=== PATIENT | female | born 1995 | race Caucasian/White ===

== ENCOUNTER 2020-09-11 09:47 | Outpatient (REF) | payer OTHER, SELFPAY ==
--- NOTE | ~2020-09-11 | XR_ITS ---
EXAMINATION: XR TIBIA AND FIBULA, RIGHT CLINICAL INFORMATION: Creatinine spasm COMPARISON: None TECHNIQUE: AP and lateral views of the right tibia and fibula were obtained. FINDINGS: The bones and soft tissues are normal. No fracture. No osseous lesions. XR/XR tibia fibula RT 2V IMPRESSION: Normal right tibia and fibula.
[2020-09-11 11:46] LABS: Alanine Aminotransferase 17 U/L (0-31); Albumin Level 4.9 g/dL (3.5-5.0); Alkaline Phosphatase 54 U/L (39-117); Anion Gap 16 (12-20); Aspartate Amino Transferase 22 U/L (5-31); Bilirubin Total 0.6 mg/dL (0.0-1.0); Blood Urea Nitrogen 9 mg/dL (9-16); Calcium 9.7 mg/dL (8.4-10.2); Carbon Dioxide 26 mmol/L (22-29); Chloride 103 mmol/L (96-108); Estimated Glomerular Filt Rate > 60; Glucose Random 77 mg/dL (60-115); Magnesium 2.2 mg/dL (1.6-2.6); Potassium 4.5 mmol/L (3.3-5.1); Sodium 140 mmol/L (135-145); Total Protein 7.9 g/dL (6.5-8.0)
[2020-09-11 12:09] LABS: Erythrocyte Sedimentation Rate 4 MM/HR (0-20)
[2020-09-12 13:37] LABS: CRP High Sensitivity 1.6 mg/L
== END 2020-09-11 09:48 | disposition home or self-care (01) ==
LOC: HO.WFDLDS 09:47
PROVIDERS: PCP Family Medicine; Visit Provider Family Medicine
DX: R25.2 Cramp and spasm (principal)
CPT/HCPCS: 36415; 73590; 80053; 83735; 85652; 86141

== ENCOUNTER 2020-09-12 15:55 | Outpatient (REF) | payer OTHER, SELFPAY ==
[2020-09-12 17:44] LABS: D Dimer < 200 NG/ML
== END 2020-09-12 15:56 | disposition home or self-care (01) ==
LOC: HO.LAB 15:55
PROVIDERS: Visit Provider Family Medicine
DX: M79.669 Pain in unspecified lower leg (principal); R25.2 Cramp and spasm
CPT/HCPCS: 36415; 85379

== ENCOUNTER 2020-11-03 13:47 | Outpatient (REF) | payer OTHER, SELFPAY ==
--- NOTE | ~2020-11-03 | US_ITS ---
EXAMINATION: US DIAGNOSTIC ULTRASOUND BREAST, RIGHT US DIAGNOSTIC ULTRASOUND BREAST, LEFT CLINICAL INFORMATION: 25-year-old with chronic cyclical palpable fullness upper outer quadrants. No known family history breast cancer. No prior breast imaging. COMPARISON: None. TECHNIQUE: Ultrasound of each breast is targeted to the areas of clinical concern. Grayscale imaging and color Doppler are performed without and with harmonics. Left breast is targeted to the 1:00 through 3:00 position. Right breast is targeted to the 6:00 to 7:00 and 10:00 position. Patient is able to point to the areas of concern at time of imaging. FINDINGS: Right: There is no focal suspicious finding. There is no cystic or solid mass, architectural abnormality, duct ectasia, or edema in the soft tissue planes. Left: There is no focal suspicious finding. There is no cystic or solid mass, architectural abnormality, duct ectasia, or edema in the soft tissue planes. Results are discussed with the patient at time of visit. US/US breast RT limited IMPRESSION: Normal study. ASSESSMENT: BI-RADS 1: Negative RECOMMENDATION: 1. Patient should be managed based on the clinical impression. If clinically indicated, further evaluation may be considered with surgical consult. Decision to proceed with biopsy should be based on clinical grounds and degree of clinical concern. 2. Otherwise, routine annual screening mammography, beginning age 40, or earlier as clinical risk factors warrant..
--- NOTE | ~2020-11-03 | US_ITS ---
EXAMINATION: US DIAGNOSTIC ULTRASOUND BREAST, RIGHT US DIAGNOSTIC ULTRASOUND BREAST, LEFT CLINICAL INFORMATION: 25-year-old with chronic cyclical palpable fullness upper outer quadrants. No known family history breast cancer. No prior breast imaging. COMPARISON: None. TECHNIQUE: Ultrasound of each breast is targeted to the areas of clinical concern. Grayscale imaging and color Doppler are performed without and with harmonics. Left breast is targeted to the 1:00 through 3:00 position. Right breast is targeted to the 6:00 to 7:00 and 10:00 position. Patient is able to point to the areas of concern at time of imaging. FINDINGS: Right: There is no focal suspicious finding. There is no cystic or solid mass, architectural abnormality, duct ectasia, or edema in the soft tissue planes. Left: There is no focal suspicious finding. There is no cystic or solid mass, architectural abnormality, duct ectasia, or edema in the soft tissue planes. Results are discussed with the patient at time of visit. US/US breast LT limited IMPRESSION: Normal study. ASSESSMENT: BI-RADS 1: Negative RECOMMENDATION: 1. Patient should be managed based on the clinical impression. If clinically indicated, further evaluation may be considered with surgical consult. Decision to proceed with biopsy should be based on clinical grounds and degree of clinical concern. 2. Otherwise, routine annual screening mammography, beginning age 40, or earlier as clinical risk factors warrant..
== END 2020-11-03 13:48 | disposition home or self-care (01) ==
LOC: HO.MAMMO 13:47
PROVIDERS: Visit Provider Family Medicine
DX: N63.11 Unspecified lump in the right breast, upper outer quadrant (principal); N63.21 Unspecified lump in the left breast, upper outer quadrant
CPT/HCPCS: 76642